=== PATIENT | female | born 1985 | race Caucasian/White ===

== ENCOUNTER 2022-12-29 10:56 | Emergency (ER) | payer OTHER, SELFPAY ==
[2022-12-29 11:03] VITALS: BP 110/72; PULSE 87; RESP 18; TEMP 36.7; O2SAT 100; BMI 25.9
[2022-12-29] MEDS: Lidocaine HCl 1 % MPF 2 ML VIAL INFILTRATI (11:39)
[2022-12-29] MEDS: Lidocaine HCl 1 % MPF 5 ML VIAL INFILTRATI (11:39)
[2022-12-29 11:59] LABS: IDNOW Serial# 08D9AD1C; Strep A Nucleic Acid Positive (Negative)
--- NOTE | 2022-12-29 12:44 | ED_ITS ---
HPI - URI/Sore Throat General Chief Complaint: Upper Respiratory Symptoms Stated Complaint: sent from urgent care / peritonsillar abscess Time Seen by Provider: 12/29/22 11:01 Source: patient, RN notes reviewed and old records reviewed Mode of arrival: ambulatory History of Present Illness HPI Narrative: 37-year-old female at 5 weeks gestation presenting to the ED sent in from urgent care for PER DIEM INTERPRETER. Patient states she was diagnosed with strep pharyngitis 5 days ago at Urgent Care prescribed amoxicillin, has been taking for 4-5 days without improvement. Reports difficulty swallowing secondary to pain. Denies ear pain, inability to swallow, fever, SOB MD elicited complaint: sore throat Related Data Previous Rx's Medication Instructions Recorded prednisone 20 mg tablet 40 mg PO DAILY 2 days #4 tabs 12/29/22 Allergies Allergy/AdvReac Type Severity Reaction Status Date / Time No Known Allergies Allergy Verified 12/29/22 11:02 Review of Systems Review of Systems: Constitutional: No Fever, No Chills ENT/Mouth: No Ear Pain, No Nasal Congestion, No Sinus Pain, + Hoarseness, + sore throat, No Rhinorrhea, No Swallowing Difficulty Cardiovascular: No Chest Pain, No SOB Respiratory: No Cough, No Sputum, No Wheezing Gastrointestinal: No Nausea, No Vomiting, No Diarrhea, No Constipation, No Abdominal pain Musculoskeletal: No joint pain, No Myalgias, No Joint Swelling Skin: No Skin Lesions, No rash Neuro: No Weakness Yes all other systems are reviewed and are negative Constitutional: Constitutional: Reports as per [facility] Past Medical History Attestation statement: The following information was validated with the patient. Source: old records reviewed Social History Social History Advance Directives: No Advance Directives Information Provided: Yes Physical Exam Vital Signs: Vital Signs: Last Vital Signs Temp 98.0 F 12/29/22 11:03 Pulse 87 12/29/22 11:03 Resp 18 12/29/22 11:03 BP 110/72 12/29/22 11:03 Pulse Ox 100 12/29/22 11:03 O2 Del Method Room Air 12/29/22 11:03 BMI result Body Mass Index 25.9 Const: General: cooperative, healthy appearing, no acute distress, alert, awake and Physically active Orientation/consciousness: patient oriented x3 Limitations: no limitations HEENT: Head: Yes normal to inspection and Yes atraumatic Ears: hearing grossly normal bilaterally, external ears normal, TM's normal bilaterally and mastoids normal General nose exam: Normal external nose present Face and sinus: Yes normal facial exam Throat: No uvula midline, Yes peritonsillar mass (+ right-sided PER DIEM INTERPRETER), Yes posterior oropharynx abnormal (Erythematous), Yes uvula laterally displaced (To the left) and No uvular edema Eyes: General: appearance normal, both eyes and all related structures EOM: EOMs intact bilaterally Neck: Other: + submandibular lymphadenopathy greater on the right Neck: Yes normal visual inspection and Yes no meningeal signs Resp: Other: Handling secretions, no drooling Effort & Inspection: normal respiratory effort, not labored, no respiratory distress and no stridor Auscultation: clear to auscultation bilaterally Cardio: Rate: regular rate Skin: Rashes: no rashes Wounds: no wounds Neuro: General: patient oriented x3, tone normal and no meningeal signs Cranial nerves: Yes CN's II-XII intact bilaterally Gait exam (Neuro): Normal gait present Extrem: General: Yes normal to inspection Course Course Course Narrative: -patient tolerated procedure well, 2 cc of pus drainage expressed. Patient given p.o. prednisone in the ED. patient was given total of 10 day course of amoxicillin, and total of 3 days of p.o. prednisone Results discussed with patient including worrisome signs and symptoms and strict return precautions, and when to return to the emergency department. They verbalized understanding and feel safe for discharge at this time. Medications Administered Discontinued Medications Generic Name Dose Route Start Last Admin Trade Name Josiah PRN Reason Stop Dose Admin Lidocaine HCl 2 ml 12/29/22 11:33 12/29/22 11:39 Lidocaine Hcl 1 % Mpf 2 Ml Vial INFILTRATI 12/29/22 11:34 2 ml ONCE ONE Administration Lidocaine HCl 5 ml 12/29/22 11:33 12/29/22 11:39 Lidocaine Hcl 1 % Mpf 5 Ml Vial INFILTRATI 12/29/22 11:34 5 ml ONCE ONE Administration Medical Decision Making Medical Decision Making MDM Narrative: 37-year-old female at 5 weeks gestation presenting to the ED sent in from urgent care for PER DIEM INTERPRETER. Patient states she was diagnosed with strep pharyngitis 5 days ago at Urgent Care prescribed amoxicillin, has been taking for 4-5 days without improvement. On exam vital signs stable, NAD, muffled voice noted with right- sided PER DIEM INTERPRETER with uvular deviation to the left. Patient is handling secretions, talking in complete sentences, no stridor, no respiratory distress. Concern for strep pharyngitis with PER DIEM INTERPRETER. Low suspicion for retropharyngeal abscess. Plan: I&D, p.o. prednisone Case discussed with the ED attending Dr. Regalado who is in agreement with plan Please refer to course for remaining clinical decision making, interpretation of labs/imaging results, and discussions with consultants and/or family members. Differential Diagnosis Differential Diagnoses: The differential diagnosis associated with the presentation includes As above Admission/Observation Consideration of admission/observation: Escalation of care including admission/observation considered Lab Data MDM Lab Attestation statement: I reviewed the patient's lab results. Labs: Lab Results 12/29/22 Range/Units 11:28 S. pyogenes GrpA KAMINI Positive A (Negative) Radiology Impression Discussion of test interpretation with radiology: I have reviewed the radiologist's reading. External Record Review External record reviewed: Inpatient record, Office record, Outpatient record, Prior outpatient labs, Prior outpatient radiology, Primary care record and Outside ED record Tests considered The following testing was considered but not selected: As above Prescription Management I considered prescription management with: Pain Medication and Antibiotic Procedures Abscess I/D Site: oral Side (if applicable): right Local Anesthetic: lidocaine 1% Amount of anesthesia used (mL): 3 Technique: needle aspiration Amount of fluid expressed (mL): 2 Sent for culture/gram staining?: No Irrigation: No Packing used?: none Critical Care Time Critical Care Time Critical Care Time: Yes Total Critical Care Time: 35 Attestation: I have personally provided critical care time exclusive of time spent on separately billable procedures. Time includes review of lab data, radiology results, discussion with consultants, and monitoring for potential decompensation. Intervention performed as documented. Discharge Plan Discharge Clinical Impression: Peritonsillar abscess Patient Disposition: Home, Self-Care Instructions: Peritonsillar Abscess (DC) Additional Instructions: Continue taking previously prescribed amoxicillin, complete the course In addition take prednisone You should also take Tylenol for pain this is all safe in If symptoms persist or worsen he develops shortness of breath, throat closing sensation, difficulty or inability to swallow return to the ED Follow-up with your PCP in the next few days Prescriptions: New prednisone 20 mg tablet 40 mg PO DAILY 2 Days Qty: 4 0RF Referrals: Physician,None [Primary Care Provider] - 3 days
--- NOTE | 2022-12-29 13:06 | PC.NURSE ---
cambodian speaking- foreign language interpreter used- IN[employer] drained by pa
== END 2022-12-29 13:07 | disposition home or self-care (01) ==
PROVIDERS: Physician Assistant; Emergency Provider Emergency Medicine Emergency Medical Services
DX: O26.891 Other specified pregnancy related conditions, first trimester (principal); J36 Peritonsillar abscess; Z3A.01 Less than 8 weeks gestation of pregnancy
CPT/HCPCS: 10160; 87651; 99282; 99284